=== PATIENT | female | born 1965 | race Caucasian/White ===

== ENCOUNTER 2018-12-07 01:02 | Observation (INO) | payer BC, OTHER ==
[~2018-12-07] VITALS: Ht 182.4 cm; Wt 120.0 kg
[~2018-12-07 01:02] MED LIST: AMOX1TAB64 PO; APIX5TAB PO; DOXY100C2 PO; ESOM20SU PO; LACT1CAP24 PO; MAGN400T26 PO; thyroid support PO
[2018-12-07] MEDS ORDERED: ONDANSETRON 2MG/ML, 2ML ONE (01:39)
[2018-12-07] MEDS ORDERED: MORPHINE SULFATE 4 MG/ML, 1ML ONE (01:40)
[2018-12-07] MEDS ORDERED: AMOX1TAB64 PO (01:44)
[2018-12-07] MEDS ORDERED: ONDANSETRON 2MG/ML, 2ML IVP ONE (02:00)
[2018-12-07] MEDS ORDERED: MORPHINE SULFATE 4 MG/ML, 1ML IVPush PRN (02:00)
--- NOTE | 2018-12-07 02:07 | NUR ---
PT C/O SUDDEN ONSET L SIDE CP AND SOB SINCE 1630 TODAY. PT STATES THIS FEELS SIMILAR TO THE LAST TIME SHE HAD A PE IN 2017. 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 IS CURRENTLY ON ANTIBIOTICS FOR INFECTED DVT. PT NSR ON MONITOR. VSS. PAIN IS MORE SEVERE WITH DEEP BREATHING AND MOVEMENT. IV ACCESS OBTAINED AND LABS SENT. PT MEDICATED PER AUG FOR PAIN. CALL LIGHT IN REACH. PT AWARE OF POC. NO FURTHER NEEDS EXPRESSED AT THIS TIME.
[2018-12-07 02:15] LABS: ANION GAP 4 mmol/L (5-15); CALCIUM 8.2 mg/dL (8.5-10.1); CHLORIDE 109 mmol/L (98-107); CREATININE 0.65 mg/dL (0.55-1.02)
[2018-12-07 02:20] LABS: TROPONIN I < 0.015 ng/mL (0.000-0.045)
[2018-12-07 02:31] LABS: MD YES; MEAN CORPUSCULAR HEMOGLOBIN 20.2 pg (27.0-34.8); MEAN CORPUSCULAR VOLUME 67.6 fL (80-100); MEAN PLATELET VOLUME 8.3 fL (7.4-10.4); PLATELET COUNT 200 x10^3/uL (130-400); RED BLOOD COUNT 3.78 x10^6/uL (3.82-5.3); RED CELL DISTRIBUTION WIDTH 19.5 % (9.6-15.2)
[2018-12-07 02:32] LABS: MEAN CORPUSCULAR HGB CONC 29.9 g/dL (32.4-35.8)
--- NOTE | 2018-12-07 02:35 | NUR ---
Pt to CT via w/c.
[2018-12-07 02:42] LABS: ANISOCYTOSIS 2+; BASOS#(MANUAL) 0.06 x10^3/uL (0-0.1); BASOS% (MANUAL) 1 % (0-1); EOS#(MANUAL) 0.11 x10^3/uL (0.0-0.4); EOS% (MANUAL) 2 % (1-7); HYPOCHROMIA 1+; LYMPH#(MANUAL) 1.18 x10^3/uL (1-3.4); LYMPHS% (MANUAL) 21 % (22-44); MICROCYTOSIS 2+; MONOS#(MANUAL) 0.34 x10^3/uL (0.3-2.7); MONOS% (MANUAL) 6 % (2-9); POLYCHROMASIA 1+; PROTHROMBIN TIME 10.5 Seconds (9.6-11.5); SEG#(MANUAL) 3.92 x10^3/uL (1.8-6.8); SEGS% (MANUAL) 70 % (42-75)
[2018-12-07 02:43] LABS: <PLATELET ESTIMATE> ADEQUATE; <PLT MORPHOLOGY> NORMAL PLT MORPH; OVALOCYTES 1+
[2018-12-07] MEDS ORDERED: OMNIPAQUE 350 MG/ML, 100ML BOTTLE ONE (02:43)
--- NOTE | 2018-12-07 03:00 | NUR ---
ERP AT BEDSIDE TO RECHECK.
[2018-12-07 04:16] VITALS: BP 143/84
[2018-12-07] MEDS ORDERED: THYROID SUPPORT MC SCH (04:30)
[2018-12-07 04:32] LABS: % IRON SATURATION 3 % (20-55); IRON LEVEL 11 mcg/dL (50-170); TOTAL IRON BINDING CAPACITY 346 mcg/dL (250-450); TROPONIN I < 0.015 ng/mL (0.000-0.045)
[2018-12-07] MEDS ORDERED: FERR324T5 PO (04:47)
[2018-12-07] MEDS: ASPIRIN 81 MG TABLET EC PO SCH (05:40)
[2018-12-07 07:41] VITALS: BP 127/76
[2018-12-07] MEDS ORDERED: FERROUS SULFATE 325 MG TABLET PO SCH (08:00)
[2018-12-07] MEDS: MAGNESIUM OXIDE 400 MG TABLET PO SCH (08:17)
[2018-12-07] MEDS: LACTOBACILLUS CHEW TABLET PO SCH ×2 (08:17→20:40)
[2018-12-07] MEDS: APIXABAN 5 MG TABLET PO SCH ×2 (08:17→20:40)
[2018-12-07] MEDS: AMOXICILLIN/CLAV 875-125MG TABLET PO SCH ×2 (08:17→20:40)
[2018-12-07] MEDS: PANTOPRAZOLE 20MG TABLET PO SCH (08:18)
[2018-12-07] MEDS ORDERED: THYROID SUPPORT PO SCH (09:00)
[2018-12-07] MEDS: ACETAMINOPHEN 325 MG TABLET PO PRN ×2 (10:17→22:18)
[2018-12-07 10:23] LABS: TROPONIN I < 0.015 ng/mL (0.000-0.045)
[2018-12-07] MEDS ORDERED: morphine SULFATE 10 MG/ML, 1ML IVPush PRN (11:30)
[2018-12-07] MEDS: MORPHINE SULFATE 4 MG/ML, 1ML IVPush PRN (11:40)
[2018-12-07 13:56] VITALS: BP 124/77
[2018-12-07 14:59] LABS: ALANINE AMINOTRANSFERASE 19 U/L (12-78); ALBUMIN 2.8 g/dL (3.4-5.0); BILIRUBIN, DIRECT < 0.1 mg/dL (0.1-0.2)
[2018-12-07] MEDS ORDERED: IRON SUCROSE COMPLEX 100MG/5ML IV ONE (15:00)
[2018-12-07 15:01] LABS: ALKALINE PHOSPHATASE 88 U/L (45-117); BILIRUBIN,INDIRECT 0.1 mg/dL (0.0-2.0); BILIRUBIN,TOTAL 0.2 mg/dL (0.2-1.0); TOTAL PROTEIN 6.8 g/dL (6.4-8.2)
[2018-12-07 20:55] VITALS: BP 134/86
[2018-12-08 00:11] VITALS: BP 121/69
[2018-12-08 05:42] LABS: MEAN CORPUSCULAR HEMOGLOBIN 19.7 pg (27.0-34.8); MEAN CORPUSCULAR VOLUME 66.3 fL (80-100); MEAN PLATELET VOLUME 8.7 fL (7.4-10.4); PLATELET COUNT 196 x10^3/uL (130-400); RED CELL DISTRIBUTION WIDTH 19.8 % (9.6-15.2)
[2018-12-08 05:45] LABS: ALBUMIN 2.8 g/dL (3.4-5.0); ANION GAP 5 mmol/L (5-15); CALCIUM 8.7 mg/dL (8.5-10.1); CHLORIDE 107 mmol/L (98-107)
[2018-12-08 05:51] LABS: ALANINE AMINOTRANSFERASE 15 U/L (12-78); ALKALINE PHOSPHATASE 89 U/L (45-117); BILIRUBIN,TOTAL 0.2 mg/dL (0.2-1.0); CREATININE 0.51 mg/dL (0.55-1.02); TOTAL PROTEIN 6.6 g/dL (6.4-8.2)
[2018-12-08 05:55] LABS: MEAN CORPUSCULAR HGB CONC 29.7 g/dL (32.4-35.8)
[2018-12-08 06:11] LABS: BASOPHILS # (AUTO) 0.03 x10^3/uL (0-0.1); BASOPHILS % (AUTO) 1 % (0-1); EOSINOPHILS # (AUTO) 0.15 x10^3/uL (0-0.4); EOSINOPHILS % (AUTO) 3 % (1-7); LYMPHOCYTES # (AUTO) 1.16 x10^3/uL (1-3.4); LYMPHOCYTES % (AUTO) 22 % (22-44); MD SCAN; MONOCYTES % (AUTO) 9 % (2-9); NEUTROPHILS # (AUTO) 3.55 x10^3/uL (1.8-6.8); NEUTROPHILS % (AUTO) 66 % (42-75)
[2018-12-08] MEDS: ASPIRIN 81 MG TABLET EC PO SCH (06:12)
[2018-12-08] MEDS: MORPHINE SULFATE 4 MG/ML, 1ML IVPush PRN (06:26)
[2018-12-08 07:17] VITALS: BP 138/89
[2018-12-08 08:45] LABS: TROPONIN I < 0.015 ng/mL (0.000-0.045)
[2018-12-08] MEDS ORDERED: IRON SUCROSE COMPLEX 100MG/5ML IV ONE (09:00)
[2018-12-08] MEDS: APIXABAN 5 MG TABLET PO SCH (09:23)
[2018-12-08] MEDS: PANTOPRAZOLE 20MG TABLET PO SCH (09:23)
[2018-12-08] MEDS: LACTOBACILLUS CHEW TABLET PO SCH (09:23)
[2018-12-08] MEDS: MAGNESIUM OXIDE 400 MG TABLET PO SCH (09:23)
[2018-12-08] MEDS: AMOXICILLIN/CLAV 875-125MG TABLET PO SCH (09:23)
== END 2018-12-08 13:25 | disposition home or self-care (01) ==
LOC: ED 03:10 → EDIP 03:27 → INTOOBSV 03:27 → 5SO 04:06 → DCLOUNGE 12-08 13:14
PROVIDERS: ADMIT Family Medicine; ATTEND Family Medicine
DX: R07.89 Other chest pain (principal); M71.22 Synovial cyst of popliteal space [Baker], left knee; D50.9 Iron deficiency anemia, unspecified; E03.9 Hypothyroidism, unspecified; J44.9 Chronic obstructive pulmonary disease, unspecified; I10 Essential (primary) hypertension; Z86.718 Personal history of other venous thrombosis and embolism; Z90.49 Acquired absence of other specified parts of digestive tract; Z79.899 Other long term (current) drug therapy; Z79.01 Long term (current) use of anticoagulants; Z87.891 Personal history of nicotine dependence
CPT/HCPCS: 36415; 71275; 80048; 80053; 80076; 82040; 83540; 83550; 83880; 84484; 85025; 85610; 85730; 93005; 93306; 93971; 96374; 96375; 96376; 99284; G0378; J1756; J2270; J2405; Q9967